=== PATIENT | female | born 1995 | race Caucasian/White ===

== ENCOUNTER 2016-03-05 15:46 | Emergency (ER) | payer BC ==
[2016-03-05] MEDS ORDERED: ONDANSETRON 4 MG ODT TAB ONE (17:10)
== END 2016-03-05 17:17 | disposition home or self-care (01) ==
LOC: ED 15:46
DX: J11.1 Influenza due to unidentified influenza virus with other respiratory manifestations (principal); J06.9 Acute upper respiratory infection, unspecified
CPT/HCPCS: 87804; 99283 ×2; A9270